=== PATIENT | female | born 1965 | race Caucasian/White ===

== ENCOUNTER 2017-10-09 05:36 | Day surgery (SDC) | payer OTHER ==
[~2017-10-09] VITALS: Ht 160 cm; Wt 88.4 kg
[~2017-10-09 05:36] MED LIST: ASCORBIC ACID100 MG PO; ESSENTIAL WOMA1 EAC1 PO; OMEGA 3 500 SO1 EACH PO
[2017-10-09 05:55] VITALS: BP 138/95
[2017-10-09] MEDS ORDERED: MOTRIN800 MG PO (09:05)
[2017-10-09] MEDS ORDERED: PERCOCET 5/31 TABLET PO (09:06)
[2017-10-09 10:27] VITALS: BP 151/97
[2017-10-09 11:40] VITALS: BP 137/96
[2017-10-09 13:00] VITALS: BP 151/100
[2017-10-09 14:20] VITALS: BP 155/94
== END 2017-10-09 14:20 | disposition home or self-care (01) ==
LOC: SDC
PROC: 0UT64ZZ Resection of Left Fallopian Tube, Percutaneous Endoscopic Approach (ICD-10-PCS; principal; 2017-10-09)
PROC: 0UT14ZZ Resection of Left Ovary, Percutaneous Endoscopic Approach (ICD-10-PCS; principal; 2017-10-09)
DX: C56.2 Malignant neoplasm of left ovary (principal); K21.9 Gastro-esophageal reflux disease without esophagitis
CPT/HCPCS: 88307; J0131; J0690; J1885; J2250; J2405; J2710; J7643; S0020